=== PATIENT | male | born 1940 | race Asian ===

== ENCOUNTER 2020-04-22 06:06 | Day surgery (SDC) | payer MEDICARE ==
[~2020-04-22] VITALS: Ht 157.5 cm; Wt 80.6 kg
[~2020-04-22 06:06] MED LIST: ALLO100T30 PO; ASPI325T17 PO; ATOR40TA78 PO; CINA30TA2 PO; LISI-170 PO; METO50TA82 PO; MINO50CA3 PO; SEVE800T8 PO
[2020-04-22 06:53] VITALS: BP 178/85
[2020-04-22 07:29] LABS: INTERNATIONAL NORMALIZED RATIO 0.99 (0.93-1.1); PROTHROMBIN TIME 10.6 Seconds (9.6-11.5)
[2020-04-22] MEDS ORDERED: SODIUM CHLORIDE 0.9% 1,000 ML IV SCH (07:30)
[2020-04-22] MEDS ORDERED: FENTANYL PF 100 MCG/2ML ONE (08:07)
[2020-04-22] MEDS ORDERED: NALOXONE 1 MG/ML, 2ML ONE (08:07)
[2020-04-22] MEDS ORDERED: MIDAZOLAM 1 MG/ML, 5ML ONE ×2 (08:07)
[2020-04-22] MEDS ORDERED: FLUMAZENIL 0.1 MG/1 ML, 5ML ONE (08:07)
== END 2020-04-22 10:55 | disposition home or self-care (01) ==
LOC: RAD 06:06 → EDSTATUS 08:00 → RAD 10:55
PROVIDERS: ATTEND Urology
DX: N28.89 Other specified disorders of kidney and ureter (principal); I12.9 Hypertensive chronic kidney disease with stage 1 through stage 4 chronic kidney disease, or unspecified chronic kidney disease; N18.9 Chronic kidney disease, unspecified; Z79.899 Other long term (current) drug therapy; Z83.3 Family history of diabetes mellitus; Z80.59 Family history of malignant neoplasm of other urinary tract organ
CPT/HCPCS: 36415; 50200; 77012; 85610; 88305; 99156; J2250; J3010; J2310